=== PATIENT | female | born 1950 | race Caucasian/White ===

== ENCOUNTER 2017-08-03 08:07 | Day surgery (SDC) | payer OTHER | END 2017-08-03 12:30 | disposition home or self-care (01) | LOC: AMB-ENDOS 08:07 | DX: K52.89 Other specified noninfective gastroenteritis and colitis (principal); K57.30 Diverticulosis of large intestine without perforation or abscess without bleeding; K64.8 Other hemorrhoids ==

== ENCOUNTER 2020-09-17 05:40 | Day surgery (SDC) | payer OTHER | END 2020-09-17 13:40 | disposition home or self-care (01) | LOC: AMB-ENDOS 05:40 | PROVIDERS: ATTEND Surgery | DX: D12.5 Benign neoplasm of sigmoid colon (principal) ==